=== PATIENT | male | born 1960 | race Caucasian/White ===

== ENCOUNTER 2022-12-21 10:38 | Emergency (ER) | payer SELFPAY ==
[~2022-12-21] VITALS: Ht 177.8 cm; Wt 81.6 kg
[2022-12-21 12:02] LABS: HEMATOCRIT 43.3 % (42.0-52.0); MEAN CELL VOLUME 91.9 fl (80.0-94.0); MEAN CORPUSCULAR HGB 31.4 pg (27.0-31.0); MEAN CORPUSCULAR HGB CONC 34.2 g/dl (33.0-37.0); MEAN PLATELET VOLUME 10.6 fl (9.6-12.3); PLATELET COUNT AUTOMATED 360 10*3/uL (130-400); RED BLOOD COUNT 4.71 10*6/uL (4.50-5.90); RED CELL DISTRI WIDTH 11.9 % (0-14.5); WHITE BLOOD COUNT 16.3 10*3/uL (4.8-10.8)
[2022-12-21 12:10] LABS: MANUAL DIFF REFLEX YES
[2022-12-21 12:19] LABS: ALKALINE PHOSPHATASE 97 U/L (46-116); BUN 26 mg/dl (9-23); CHLORIDE 101 mmol/L (98-107); POTASSIUM 4.3 mmol/L (3.4-5.1); SGPT/ALT 24 U/L (10-49); TOTAL PROTEIN 7.2 gm/dL (6.0-8.0); URIC ACID 7.2 mg/dL (3.7-9.2)
[2022-12-21 12:22] LABS: TOTAL CELLS COUNTED 100 #CELLS
[2022-12-21 12:23] LABS: PLATELET SUFFICIENCY NORMAL (NORMAL)
[2022-12-21] MEDS ORDERED: PREDNISONE50 MG PO (13:04)
== END 2022-12-21 13:10 | disposition home or self-care (01) ==
LOC: ED 10:38
PROVIDERS: Nurse Practitioner Family
DX: M10.09 Idiopathic gout, multiple sites (principal); Z88.1 Allergy status to other antibiotic agents